=== PATIENT | female | born 1950 | race Caucasian/White ===

== ENCOUNTER → 2023-11-23 | Outpatient (CLI) | payer MEDICARE | END | disposition home or self-care (01) | LOC: LABPRL 12:00 | PROVIDERS: ATTEND Physician Assistant Medical | DX: L02.411 Cutaneous abscess of right axilla (principal) | CPT/HCPCS: 87070; 87205 ==

== ENCOUNTER 2024-09-26 13:40 | Emergency (ER) | payer MEDICARE ==
[2024-09-26] MEDS: CYCLOBENZAPRINE 10 MG TAB PO STA (14:23)
[2024-09-26] MEDS: Acetaminophen-Codeine 300-30mg TAB PO STA (14:23)
--- NOTE | 2024-09-26 14:35 | ED ---
Back Pain HPI - General Chief Complaint: Back Pain/Injury Stated Complaint: Lower back Pain Time Seen by Provider: 09/26/24 13:57 Source: patient, RN notes reviewed Limitations: no limitations - History of Present Illness Initial Comments: This is a 74-year-old female with history including hypertension and daily EtOH use presenting for low back pain (01/17) x 3 weeks. Patient states pain has been worsening this morning. States pain initially was radiating to left leg for the past 3 weeks, now radiating to right hip today. Patient states pain worsens with walking. Denies recent trauma, fall or known cause for pain. Patient states she has been seeing a chiropractor with transient relief. Endorses use of heat and cold compresses with transient relief as well. Denies saddle paresthesia or urinary incontinence/retention. MD Complaint: back pain Onset/Timin -: week(s) Severity scale (1-10): 10 Consistency: constant Improves With: immobilization Worsens With: movement, walking Associated Symptoms: denies other symptoms Treatments Prior to Arrival: cold therapy, heat therapy - Related Data Home Medications Medication Instructions Recorded Confirmed Betamethasone Dipropionate 1 applic TOPICAL BID 09/26/24 09/26/24 [Betamethasone Dipropionate 0.05%] Latanoprost [Latanoprost 0.005%] 1 drop BOTH EYES HS 09/26/24 09/26/24 lisinopriL [Zestril] 10 mg PO DAILY 09/26/24 09/26/24 Previous Rx's Medication Instructions Recorded Cyclobenzaprine [Flexeril] 10 mg PO TID PRN #15 tab 09/26/24 Lidocaine 4% Patch 1 patch TOPICAL Q24H PRN #10 patch 09/26/24 Allergies Allergy/AdvReac Type Severity Reaction Status Date / Time No Known Allergies Allergy Verified 09/26/24 14:22 Review of Systems ROS Statement: Those systems with pertinent positive or pertinent negative responses have been documented in the HPI. ROS Other: All systems not noted in ROS Statement are negative. Past Medical History Past Medical History: Hypertension History of Any Multi-Drug Resistant Organisms: MRSA Date of last positivie culture/infection: 11/23/23 MDRO Source:: rt axilla Past Surgical History: No Surgical Hx Reported Past Psychological History: No Psychological Hx Reported Smoking Status: Current every day smoker Past Alcohol Use History: Daily Past Drug Use History: None Reported General Exam Limitations: no limitations General appearance: alert, in no apparent distress Head exam: Present: atraumatic, normocephalic, normal inspection Eye exam: Present: normal appearance, PERRL, EOMI. Absent: scleral icterus, conjunctival injection, periorbital swelling ENT exam: Present: normal exam, mucous membranes moist Neck exam: Present: normal inspection. Absent: tenderness, meningismus, lymphadenopathy Respiratory exam: Present: normal lung sounds bilaterally. Absent: respiratory distress, wheezes, rales, rhonchi, stridor Cardiovascular Exam: Present: regular rate, normal rhythm, normal heart sounds. Absent: systolic murmur, diastolic murmur, rubs, gallop, clicks GI/Abdominal exam: Present: soft, normal bowel sounds. Absent: distended, tenderness, guarding, rebound, rigid Extremities exam: Present: normal inspection, full ROM, normal capillary refill. Absent: tenderness, pedal edema, joint swelling, calf tenderness Back exam: Present: muscle spasm, paraspinal tenderness (Positive right paralumbar muscle spasm and point tenderness. Negative right hip tenderness.), other (Patient notes increased pain with bilateral straight leg raise, especially left side. Distal neurovascular motor function intact bilaterally. Posterior tibialis pulse +2 bilaterally.). Absent: vertebral tenderness Neurological exam: Present: alert, oriented X3, CN II-XII intact Psychiatric exam: Present: normal affect, normal mood Skin exam: Present: warm, dry, intact, normal color. Absent: rash Course Vital Signs 09/26/24 09/26/24 13:41 16:19 Temperature 97.8 F 98.2 F Pulse Rate 93 80 Respiratory 18 16 Rate Blood Pressure 150/71 141/81 O2 Sat by Pulse 98 99 Oximetry Medical Decision Making - Medical Decision Making Was pt. sent in by a medical professional or institution (, PA, REGULATORY PRODUCT MANAGER, urgent care, hospital, or [facility]...) When possible be specific @ -No Did you speak to anyone other than the patient for history (EMS, parent, family, police, friend...)? What history was obtained from this source @ -No Did you review nursing and triage notes (agree or disagree)? Why? @ -I reviewed and agree with nursing and triage notes Were old charts reviewed (outside hosp., previous admission, EMS record, old EKG, old radiological studies, urgent care reports/EKG's, [facility] records)? Report findings @ -No old charts were reviewed Differential Diagnosis (chest pain, altered mental status, abdominal pain women, abdominal pain men, vaginal bleeding, weakness, fever, dyspnea, syncope, headache, dizziness, GI bleed, back pain, seizure, CVA, palpatations, mental health, musculoskeletal)? @ -Differential Musculoskeletal Muscular strain, contusion, ligament sprain, fracture, arthritis, septic arthritis, bursitis, cellulitis, muscle spasm, nerve compression, DVT, arterial occlusion, herpes zoster, electrolyte abnormality, tumor.... This is not meant to be in all inclusive list EKG interpreted by me (3pts min.). @ -Not done X-rays interpreted by me (1pt min.). @ -None done CT interpreted by me (1pt min.). @ -Lumbar CT shows superior endplate compression fracture at L3 and L4 with mild degenerative disease at L3-S1 with mild/moderate stenosis at L3-4 and L4-5. Hip CT scan shows no acute fracture or dislocation with osteoarthritic changes noted. U/S interpreted by me (1pt. min.). @ -None done What testing was considered but not performed or refused? (CT, X-rays, U/S, labs)? Why? @ -None What meds were considered but not given or refused? Why? @ -None Did you discuss the management of the patient with other professionals (professionals i.e. , PA, REGULATORY PRODUCT MANAGER, lab, RT, psych nurse, social media marketer, drum sander setter, teacher, deportation officer, mattress spring encaser)? Give summary @ -No Was smoking cessation discussed for >3mins.? @ -No Was critical care preformed (if so, how long)? @ -No Were there social determinants of health that impacted care today? How? (Homelessness, low income, unemployed, alcoholism, drug addiction, transportation, low edu. Level, literacy, decrease access to med. care, care home, rehab)? @ -No Was there de-escalation of care discussed even if they declined (Discuss DNR or withdrawal of care, Hospice)? DNR status @ -No What co-morbidities impacted this encounter? (DM, HTN, Smoking, COPD, CAD, Cancer, CVA, ARF, Chemo, Hep., AIDS, mental health diagnosis, sleep apnea, morbid obesity)? @ -None Was patient admitted / discharged? Hospital course, mention meds given and route, prescriptions, significant lab abnormalities, going to OR and other pertinent info. @ -Patient provided p.o. Tylenol and Flexeril. Lumbar CT shows superior endplate compression fracture at L3 and L4 with mild degenerative disease at L3- S1 with mild/moderate stenosis at L3-4 and L4-5. Hip CT scan shows no acute fracture or dislocation with osteoarthritic changes noted. Flexeril and lidocaine patches sent to patient's pharmacy. Advised follow-up with orthopedics for regarding vertebral compression fracture. Discussed patient with Dr. Bond. Undiagnosed new problem with uncertain prognosis? @ -No Drug Therapy requiring intensive monitoring for toxicity (Heparin, Nitro, Insulin, Cardizem)? @ -No Were any procedures done? @ -No Diagnosis/symptom? @ -Compression fracture of lumbar vertebrae Acute, or Chronic, or Acute on Chronic? @ -Acute Uncomplicated (without systemic symptoms) or Complicated (systemic symptoms)? @ -Uncomplicated Side effects of treatment? @ -No Exacerbation, Progression, or Severe Exacerbation? @ -No Poses a threat to life or bodily function? How? (Chest pain, [place], [place], pneumonia, PE, COPD, DKA, ARF, appy, cholecystitis, CVA, Diverticulitis, Homicidal, Suicidal, threat to staff... and all critical care pts) @ -No Disposition Clinical Impression: Compression fracture of lumbar vertebra Disposition: HOME SELF-CARE Condition: Fair Instructions (If sedation given, give patient instructions): Vertebral Compression Fracture (ED), Acute Low Back Pain (ED) Additional Instructions: Alternate Tylenol/Motrin every 4 hours for pain. Apply warm/cool compress to affected area of pain for 10 minutes up to 4 times daily. Follow-up with orthospine for ongoing management of fractures. Prescriptions: Cyclobenzaprine [Flexeril] 10 mg PO TID PRN #15 tab PRN Reason: Spasms Lidocaine 4% Patch 1 patch TOPICAL Q24H PRN #10 patch PRN Reason: Pain Is patient prescribed a controlled substance at d/c from ED?: No Referrals: None,Stated [Primary Care Provider] - 1-2 days Ramos Sidhu, DO [Doctor of Osteopathic Medicine] - 1-2 days Duong Castillo, DO [Doctor of Osteopathic Medicine] - 1-2 days Time of Disposition: 15:28
--- NOTE | 2024-09-26 15:20 | CT ---
EXAMINATION TYPE: CT hip RT wo con DATE OF EXAM: 09/26/2024 COMPARISON: None CLINICAL INDICATION: Female, 74 years old with history of Low back/R hip pain, Severe pain with ambul ation; [facility], CT DLP: mGycm Automated exposure control for dose reduction was used. Findings: There is no fracture or dislocation. There is severe joint space narrowing, subchondral sclerosis and cyst formation posterior aspect of t he right hip joint. There is moderate hypertrophic spurring of the femoral head. There is no fracture or focal intraosseous abnormality of the visualized portion of the right hemipel vis IMPRESSION: 1. NO ACUTE TRAUMA. 2. MARKED OSTEOARTHRITIC CHANGE OF THE RIGHT HIP. [facility], , 09/26/2024 3:18 PM
--- NOTE | 2024-09-26 15:24 | CT ---
EXAMINATION TYPE: CT lumbar spine wo con DATE OF EXAM: 09/26/2024 3:14 PM COMPARISON: None CLINICAL INDICATION: Female, 74 years old with history of Low back/R hip pain, Severe pain with ambul ation; [facility], TECHNIQUE: Unenhanced CT of the lumbar spine was performed. Bone and soft tissue window settings are submitted as well as coronal and sagittal reconstructions. CT DLP: mGycm CT CTDI: mGy Automated exposure control for dose reduction was used. FINDINGS: There is a mild superior endplate compression fracture of L3 of indeterminate age. There is mild to m oderate superior endplate compression fracture L4 of indeterminate age. There is no retropulsion. The lumbar vertebral segments are normal in alignment. Disc spaces are well preserved but there is mild disc bulge at the L3-4 L4-5 and L5-S1 discs indicati ng mild degenerative disc disease. There are no large lumbar disc herniations. There is mild central broad-based disc protrusion at the L5-S1 disc with no significant mass effect on the thecal sac. Secondary circumferential disc bulge, moderate thickening of ligamentum flavum and facet hypertrophy there is mild to moderate spinal stenosis at the L3-4 level and mild spinal stenosis at the L4-5 leve l. There is mild bony neural foraminal encroachment at the L5-S1 level on the left. IMPRESSION: 1. Superior endplate compression fractures of indeterminate age at the L3 and L4 levels. 2. Mild degenerative disease at the L3-4, L4-5 and L5-S1 levels. No large disc herniations. 3. Mild to moderate spinal stenosis at the L3-4 level mild spinal stenosis at the L4-5 level. [facility], , 09/26/2024 3:22 PM
[2024-09-26 16:20] VITALS: BP 141/81; PULSE 80; RESP 16; TEMP 98.2
== END 2024-09-26 16:20 | disposition home or self-care (01) ==
LOC: EC 13:40
DX: S32.010A Wedge compression fracture of first lumbar vertebra, initial encounter for closed fracture (principal); I10 Essential (primary) hypertension; F17.200 Nicotine dependence, unspecified, uncomplicated; Y93.01 Activity, walking, marching and hiking
CPT/HCPCS: 72131; 99283